=== PATIENT | female | born 1980 | race African-American/Black ===

== ENCOUNTER 2017-01-30 23:21 | Emergency (ER) | payer OTHER ==
[~2017-01-30 23:21] MED LIST: BACTRIM DS TABL1 TA1 PO; DICLOFENAC PO; FLEXERIL; FLEXERIL PO; FLONASE 0.05% N16 G1; IBUPROFEN600 MG PO; LORTAB 10 MG-3473 ML; LORTAB 5-325 M1 EACH PO; TYLENOL #3 PO
== END 2017-01-31 00:08 | disposition home or self-care (01) ==
LOC: SED 23:21
DX: L50.0 Allergic urticaria (principal); Z79.899 Other long term (current) drug therapy
CPT/HCPCS: 96372; 99283; J1040